=== PATIENT | male | born 1960 | race Caucasian/White ===

== ENCOUNTER 2017-06-27 16:33 | Emergency (ER) | payer MEDICARE, OTHER ==
[~2017-06-27] VITALS: Ht 177.8 cm; Wt 95.0 kg
[~2017-06-27 16:33] MED LIST: ALBU0.086 NEB; CHOL50006 PO; CITA20TA4 PO; EZET10 PO; FLAG500T PO; LOSA25 PO; MORP30SU PO; NITR.4 SL; NOVO7030P2 SQ; OMEG100037 PO; OXYC30TA PO; PLAV75TA PO; PROT40TA PO; ROSU40 PO; ZOLP1TAB32 PO
[2017-06-27 16:36] VITALS: BP 179/84; PULSE 97; RESP 13; TEMP 98.7; O2SAT 94
--- NOTE | 2017-06-27 16:42 | PD ---
Physical Exam Time Seen by Provider: 16:37 Narrative 56-year-old male sent by the [facility] for blood sugar greater than 500. History of diabetic and is on insulin and metformin. Blood sugars are running 350-400. Also needs to be evaluated for cough x 3 weeks and infection to his left lower leg x 1 week. Denies shortness of breath. Blood sugar in triage 546. Patient seen in triage. Vital signs reviewed. Patient awaiting bed placement. Data Data Last Documented VS Vital Signs Date Time Temp Pulse Resp B/P (MAP) Pulse Ox O2 Delivery O2 Flow Rate FiO2 06/27/17 16:36 98.7 97 13 179/84 (115) 94 MDM Supervised Visit with CHELSEA: Lyla Chaidez Jun 27, 2017 16:42
--- NOTE | 2017-06-27 17:16 | RADRPT ---
EXAM DATE/TIME: 06/27/2017 17:03 [facility] COMPARISON: No previous studies available for comparison. INDICATIONS : Cough. MEDICAL HISTORY : Cardiovascular disease. SURGICAL HISTORY : CABG. Coronary artery stent. ENCOUNTER: Initial ACUITY: 1 month PAIN SCORE: 0/10 LOCATION: Bilateral chest FINDINGS: PA and lateral views of the chest demonstrate the lungs to be symmetrically aerated without evidence of mass, infiltrate or effusion. Sternal wires and previous bypass are noted. The cardiomediastinal contours are unremarkable. Osseous structures are intact. CONCLUSION: Negative for an acute process. Irving Quigley MD FACR on June 27, 2017 at 17:14 Board Certified Radiologist. This report was verified electronically.
[2017-06-27 17:40] VITALS: BP 115/58; PULSE 93; RESP 20; O2SAT 96
[2017-06-27 18:08] LABS: AUTOMATED NEUTROPHIL # 5.2 TH/MM3 (1.8-7.7); BASOPHIL # 0.1 TH/MM3 (0-0.2); BASOPHIL % 0.7 % (0.0-2.0); EOSINOPHIL # 0.2 TH/MM3 (0-0.4); EOSINOPHIL % 2.7 % (0.0-4.0); HEMATOCRIT 41.3 % (39.0-51.0); HEMO FLAGS DIFF FINAL; LYMPH % 29.4 % (9.0-44.0); LYMPHOCYTE # 2.6 TH/MM3 (1.0-4.8); MEAN CELL VOLUME 88.2 FL (80.0-100.0); MEAN CORPUSCULAR HEMOGLOBIN 30.3 PG (27.0-34.0); MEAN CORPUSCULAR HGB CONC 34.4 % (32.0-36.0); MONO % 8.8 % (0.0-8.0); NEUT % 58.4 % (16.0-70.0); PLATELET COUNT 333 TH/MM3 (150-450); RED BLOOD COUNT 4.68 MIL/MM3 (4.50-5.90); RED CELL DISTRIBUTION WIDTH 13.4 % (11.6-17.2); WHITE BLOOD COUNT 8.9 TH/MM3 (4.0-11.0)
[2017-06-27] MEDS ORDERED: HYDROIN11 TOPICAL (18:09)
[2017-06-27] MEDS ORDERED: SUMA100T2 PO (18:09)
[2017-06-27] MEDS ORDERED: ZOFR4TAB PO (18:09)
[2017-06-27] MEDS ORDERED: VENL150C39 PO (18:09)
[2017-06-27] MEDS ORDERED: CLAR10CA3 PO (18:09)
[2017-06-27] MEDS ORDERED: FLUT50SP EACH NARE (18:09)
[2017-06-27] MEDS ORDERED: METO25TA3 PO (18:09)
[2017-06-27] MEDS ORDERED: LOSA25TA PO (18:09)
[2017-06-27] MEDS ORDERED: OXYC1CAP PO (18:09)
[2017-06-27] MEDS ORDERED: NOVOINJ3 SQ (18:09)
[2017-06-27] MEDS ORDERED: ROSU1TAB10 PO (18:09)
[2017-06-27] MEDS ORDERED: ASPI81CH CHEW (18:09)
[2017-06-27] MEDS ORDERED: CLOP75TA PO (18:09)
[2017-06-27] MEDS ORDERED: METF1000 PO (18:09)
[2017-06-27] MEDS ORDERED: ALBI1INJ2 SQ (18:09)
[2017-06-27] MEDS ORDERED: MORP1TAB24 PO (18:09)
[2017-06-27] MEDS ORDERED: GLUC4CHW CHEW (18:09)
[2017-06-27] MEDS ORDERED: SODIUM CHLOR 0.9% 1000 ML INJ 1,000 ML IV ONE (18:15)
[2017-06-27] MEDS ORDERED: INSULIN HUMAN REGULAR 1,000 UNITS/10 ML VIAL SQ ONE (18:15)
[2017-06-27] MEDS ORDERED: PROMETHAZINE INJ 25 MG/ML VIAL IM ONE (18:15)
[2017-06-27] MEDS ORDERED: KETOROLAC TROMETHAMINE 30 MG/ML (IVP) VIAL IV PUSH ONE (18:15)
[2017-06-27 18:29] LABS: ALKALINE PHOSPHATASE 72 U/L (45-117); ALT (GPT) 26 U/L (12-78); ANION GAP 10 MEQ/L (5-15); AST (GOT) 36 U/L (15-37); BETA-HYDROXYBUTYRATE 0.15 MMOL/L (0.00-0.39); BICARBONATE 21.4 MEQ/L (21.0-32.0); BLOOD UREA NITROGEN 20 MG/DL (7-18); CHLORIDE 94 MEQ/L (98-107); GLOMERULAR FILTRATION RATE 54 ML/MIN (>89); SODIUM (NA) 125 MEQ/L (136-145); TOTAL BILIRUBIN ADULT 0.7 MG/DL (0.2-1.0)
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
[2017-06-27 19:24] VITALS: BP 157/70; PULSE 89; RESP 18; O2SAT 97
--- NOTE | 2017-06-27 19:39 | RADRPT ---
EXAM DATE/TIME: 06/27/2017 18:52 [facility] COMPARISON: No previous studies available for comparison. INDICATIONS : Left side abdominal pain ORAL CONTRAST: No oral contrast ingested. RADIATION DOSE: 10.63 CTDIvol (mGy) MEDICAL HISTORY : Cerebrovascular disease. Seizures. Cardiovascular diseasehep c SURGICAL HISTORY : Cholecystectomy. Colon resection.hernia repair, ileostomy ENCOUNTER: Initial ACUITY: 1 day PAIN SCALE: 8/10 LOCATION: Left abdomen TECHNIQUE: Volumetric scanning of the abdomen and pelvis was performed. Using automated exposure control and ad justment of the mA and/or kV according to patient size, radiation dose was kept as low as reasonably achievable to obtain optimal diagnostic quality images. DICOM format image data is available electro nically for review and comparison. The lack of IV contrast limits the diagnosis for certain organ pa thology. FINDINGS: LOWER LUNGS: The visualized lower lungs are clear. LIVER: Homogeneous density without lesion. There is no dilation of the biliary tree. No calcified gallston es. SPLEEN: Normal size without lesion. PANCREAS: Within normal limits. KIDNEYS: Normal in size and shape. There is no mass, stone, or hydronephrosis. There is some focal scarring a long the midpole the right kidney. ADRENAL GLANDS: Within normal limits. VASCULAR: There is no aortic aneurysm. BOWEL/MESENTERY: The stomach, small bowel, and colon demonstrate no acute abnormality. There is no free intraperitone al air or fluid. ABDOMINAL WALL: There is an umbilical hernia containing a loop of small bowel without obstruction. There is also a he rnia through the left anterior abdominal wall rectus muscle with loops of small and large bowel. No e vidence of mechanical traction. RETROPERITONEUM: There is no lymphadenopathy. BLADDER: No wall thickening or mass. REPRODUCTIVE: Within normal limits. INGUINAL: There is no lymphadenopathy or hernia. MUSCULOSKELETAL: Within normal limits for patient age. CONCLUSION: 1. Prominent anterior left abdominal wall hernia through the left rectus muscle with loops of small a nd large bowel. No obstruction. 2. Umbilical hernia containing a loop of small bowel without obstruction. 3. No acute pathology. Jose Jones MD on June 27, 2017 at 19:35 Board Certified Radiologist. This report was verified electronically.
--- NOTE | 2017-06-27 21:49 | PD ---
Physical Exam Narrative Patient was seen by ED physician and signed out to me. Data Data Last Documented VS Vital Signs Date Time Temp Pulse Resp B/P (MAP) Pulse Ox O2 Delivery O2 Flow Rate FiO2 06/27/17 19:24 89 18 157/70 (99) 97 Room Air 06/27/17 16:36 98.7 Orders Orders Complete Blood Count With Diff (06/27/17 16:42) Comprehensive Metabolic Panel (06/27/17 16:42) Beta Hydroxybutyrate (Acetone) (06/27/17 16:42) Urinalysis - C+S If Indicated (06/27/17 16:42) Chest, Pa & Lat (06/27/17 16:42) Sodium Chlor 0.9% 1000 Ml Inj (Ns 1000 M (06/27/17 18:15) Ct Abd/Pel W/O Iv Contrast (06/27/17 ) Insulin Human Regular Inj (Novolin R Inj (06/27/17 18:15) Ketorolac Inj (Toradol Inj) (06/27/17 18:15) Promethazine Inj (Phenergan Inj) (06/27/17 18:15) Lactic Acid (06/27/17 18:56) Blood Culture (06/27/17 18:56) Ed Discharge Order (06/27/17 21:45) Labs Laboratory Tests Test 06/27/17 17:50 06/27/17 20:02 White Blood Count 8.9 TH/MM3 Red Blood Count 4.68 MIL/MM3 Hemoglobin 14.2 GM/DL Hematocrit 41.3 % Mean Corpuscular Volume 88.2 FL Mean Corpuscular Hemoglobin 30.3 PG Mean Corpuscular Hemoglobin Concent 34.4 % Red Cell Distribution Width 13.4 % Platelet Count 333 TH/MM3 Mean Platelet Volume 8.0 FL Neutrophils (%) (Auto) 58.4 % Lymphocytes (%) (Auto) 29.4 % Monocytes (%) (Auto) 8.8 % Eosinophils (%) (Auto) 2.7 % Basophils (%) (Auto) 0.7 % Neutrophils # (Auto) 5.2 TH/MM3 Lymphocytes # (Auto) 2.6 TH/MM3 Monocytes # (Auto) 0.8 TH/MM3 Eosinophils # (Auto) 0.2 TH/MM3 Basophils # (Auto) 0.1 TH/MM3 CBC Comment DIFF FINAL Differential Comment Blood Urea Nitrogen 20 MG/DL Creatinine 1.37 MG/DL Random Glucose 554 MG/DL Total Protein 8.1 GM/DL Albumin 4.0 GM/DL Calcium Level 9.7 MG/DL Alkaline Phosphatase 72 U/L Aspartate Amino Transf (AST/SGOT) 36 U/L Alanine Aminotransferase (ALT/SGPT) 26 U/L Total Bilirubin 0.7 MG/DL Sodium Level 125 MEQ/L Potassium Level 5.0 MEQ/L Chloride Level 94 MEQ/L Carbon Dioxide Level 21.4 MEQ/L Anion Gap 10 MEQ/L Estimat Glomerular Filtration Rate 54 ML/MIN B-Hydroxybutyrate 0.15 MMOL/L Lactic Acid Level 1.4 mmol/L [facility] Supervised Visit with CHELSEA: No Interpretation(s) Last Impressions Chest X-Ray 06/27/17 1642 Signed Impressions: Service Date/Time: Tuesday, June 27, 2017 17:03 - CONCLUSION: Negative for an acute process. Irving Quigley MD FACR Abdomen/Pelvis CT 06/27/17 0000 Signed Impressions: Service Date/Time: Tuesday, June 27, 2017 18:52 - CONCLUSION: 1. Prominent anterior left abdominal wall hernia through the left rectus muscle with loops of small and large bowel. No obstruction. 2. Umbilical hernia containing a loop of small bowel without obstruction. 3. No acute pathology. Jose Jones MD Diagnosis Primary Impression: Hyperglycemia Additional Impression: Abdominal hernia Qualified Codes: K45.8 - Other specified abdominal hernia without obstruction or gangrene Patient Instructions: General Instructions Additional Instruction: Accu-Chek blood sugar 4 times a day. Covering hyperglycemia with insulin. Follow-up with personal physician. Follow-up with surgeon. Return if worse. Med/Other Pt SpecificInfo: No Change to Meds Disposition: 01 DISCHARGE HOME Condition: Stable Efra Gardner MD Jun 27, 2017 21:49
== END 2017-06-27 23:00 | disposition home or self-care (01) ==
LOC: NEPE 16:33
DX: E11.65 Type 2 diabetes mellitus with hyperglycemia (principal); K45.8 Other specified abdominal hernia without obstruction or gangrene; E87.1 Hypo-osmolality and hyponatremia; L53.9 Erythematous condition, unspecified; K94.09 Other complications of colostomy; I10 Essential (primary) hypertension; E78.5 Hyperlipidemia, unspecified; F17.200 Nicotine dependence, unspecified, uncomplicated; Z79.01 Long term (current) use of anticoagulants; Z79.4 Long term (current) use of insulin; Z86.59 Personal history of other mental and behavioral disorders; Z86.79 Personal history of other diseases of the circulatory system; Z87.19 Personal history of other diseases of the digestive system; Z86.19 Personal history of other infectious and parasitic diseases; Z87.39 Personal history of other diseases of the musculoskeletal system and connective tissue; Z86.69 Personal history of other diseases of the nervous system and sense organs; Z87.2 Personal history of diseases of the skin and subcutaneous tissue
CPT/HCPCS: 71020; 74176; 80053; 82010; 83605; 85025; 87040; 96361; 96372; 96374; 99285; J1815; J1885; J2550; J7030